=== PATIENT | female | born 1985 | race Caucasian/White ===

== ENCOUNTER 2021-11-17 06:08 | Inpatient (IN) ==
[~2021-11-17 06:08] MED LIST: Buffered Lidocaine 1% SYRIN 1 ml INTRADERM ONE; Lactated Ringers 1000 ml BAG 1,000 ML IV SCH; Sodium Citrate/Citric Acid LIQ 15 ML UDC PO ONE
[2021-11-17] MEDS ORDERED: Carboprost Tromethamine 250 mcg 1 ml VIAL ONE (07:06)
[2021-11-17 07:15] LABS: Hematocrit 33 % (35-47); Hemoglobin 10.9 g/dL (12.0-16.0); Mean Corpuscular HGB Conc 33 g/dL (31-36); Mean Corpuscular Hemoglobin 28 pg (27-31); Mean Corpuscular Volume 86 fL (80-97); Mean Platelet Volume 8.8 fL (7.4-10.4); Platelet Count 202 10^3/uL (150-450); Red Blood Count 3.86 10^6 /uL (3.70-4.87); Red Cell Distribution Width 14 % (10-15); White Blood Count 12.4 10^3/uL (3.5-10.8)
[2021-11-17] MEDS ORDERED: Morphine PF AMP (0.5MG/ML) 5 MG/10 ML AMP ONE (07:32)
[2021-11-17] MEDS ORDERED: Tranexamic Acid 1 GM/100ML BAG 0 MG/0 ML BAG IV ONE (07:44)
[2021-11-17] MEDS ORDERED: ceFOXitin 2 GM PREMIX 50 ML IVPB ONE (08:00)
[2021-11-17] MEDS ORDERED: Oxytocin 10 UNITS/ML 1 ML VIAL ONE ×2 (08:17→08:39)
[2021-11-17] MEDS ORDERED: Ondansetron 4 mg VIAL 2 MG/ML 2 ml VIAL ONE (08:17)
[2021-11-17] MEDS ORDERED: Acetaminophen IV 1 GM/100ML 100 ML IV ONE (09:26)
[2021-11-17] MEDS ORDERED: Naloxone 0.4 mg VIAL 0.4 mg/ml 1 ml VIAL IV PRN ×2 (09:28→09:29)
[2021-11-17] MEDS ORDERED: Acetaminophen IV 1 GM/100 ML BAG IV ONE (09:28)
[2021-11-17] MEDS ORDERED: Scopolamine 1 mg/72hr PATCH TRANSDERM PRN (09:29)
[2021-11-17] MEDS ORDERED: diPHENhydraMINE IV 50 MG/ML 1 ml VIAL (BENADRYL) IV PRN (09:29)
[2021-11-17] MEDS ORDERED: Ondansetron 4 mg VIAL 2 MG/ML 2 ml VIAL IV PRN (09:29)
[2021-11-17] MEDS ORDERED: Glycerin ADULT 2.4 gm SUPP PR PRN (09:35)
[2021-11-17] MEDS ORDERED: Dibucaine 1% OINT 28.35 GM TUBE PR PRN (09:35)
[2021-11-17] MEDS ORDERED: Witch Hazel PAD JAR TOPICAL PRN (09:35)
[2021-11-17] MEDS ORDERED: Lactated Ringers 1000 ml BAG 1,000 ML IV SCH (10:00)
[2021-11-17] MEDS ORDERED: Oxytocin in LR 20 UNITS/1,000 ML BAG IVPB SCH (10:00)
[2021-11-17 11:36] LABS: Urine Appearance Clear; Urine Bilirubin Negative (Negative); Urine Blood 1+ (Negative); Urine Color Colorless; Urine Glucose Negative (Negative); Urine Ketones Negative (Negative); Urine Nitrite Negative (Negative); Urine Protein Negative (Negative); Urine Specific Gravity 1.003 (1.002-1.030); Urine Urobilinogen Negative (Negative)
[2021-11-17 11:46] LABS: Urine Bacteria Absent (Absent); Urine Red Blood Cell Absent (Absent); Urine White Blood Cell Absent (Absent)
[2021-11-18 07:13] LABS: ABS Eosinophils 0.1 10^3/ul (0-0.6); ABS Lymphocytes 2.7 10^3/ul (1.0-4.8); ABS Monocytes 0.7 10^3/ul (0-0.8); ABS Neutrophils 6.3 10^3/ul (1.5-7.7); Eosinophil % 1.3 %; Hematocrit 26 % (35-47); Hemoglobin 8.9 g/dL (12.0-16.0); Lymphocyte % 27.5 %; Mean Corpuscular HGB Conc 34 g/dL (31-36); Mean Corpuscular Hemoglobin 29 pg (27-31); Mean Corpuscular Volume 85 fL (80-97); Mean Platelet Volume 8.1 fL (7.4-10.4); Platelet Count 137 10^3/uL (150-450); Red Blood Count 3.06 10^6 /uL (3.70-4.87); Red Cell Distribution Width 15 % (10-15); White Blood Count 9.9 10^3/uL (3.5-10.8)
[2021-11-20 09:21] VITALS: BP 120/70
== END 2021-11-20 14:25 | disposition home or self-care (01) | DRG 540 ==
LOC: MCHOB 06:08
PROVIDERS: ADMIT Obstetrics & Gynecology; ATTEND Obstetrics & Gynecology